=== PATIENT | female | born 1995 | race Caucasian/White ===

== ENCOUNTER 2017-01-08 09:01 | Emergency (ER) | payer BC ==
[2017-01-08 09:05] VITALS: TEMP 98.2
--- NOTE | 2017-01-08 09:13 | EDPHY ---
H & P Smoking Status: Never smoked Time Seen by Provider: 01/08/17 09:06 HPI/ROS: CHIEF COMPLAINT: Right foot injury HISTORY OF PRESENT ILLNESS: 21-year-old female presents to the emergency department complaining of isolated pain to her right 4th and 5th toes. Patient states 4 days ago she was barefoot and kicked the door frame while she was at home. She states that she has had ongoing pain and now has some free time to come in and have it evaluated. She is able to ambulate although this causes more pain. Denies any other trauma or injury. She believes her tetanus shot is current. ROS: Denies numbness or tingling in her toes, pain in the ankle or calf. Denies symptoms in the left lower extremity (Danae Coughlin) Past Medical/Surgical History: Negative (Danae Coughlin) Social History: [employer] student (Danae Coughlin) Physical Exam: On examination there is a small healing abrasion to the dorsal aspect of her right 4th toe overlying D IP joint. She has tenderness with palpation to the right 4th metatarsal as well as slightly to the right 5th metatarsal. No rotational deformities are noted. Normal sensation to light touch with normal 2 point discrimination. The other toes are non tender. Full range of motion of her ankle. No lymphangitis. Antalgic gait. (Danae Coughlin) Constitutional: Initial Vital Signs Temperature (C) 36.8 C 01/08/17 09:02 Heart Rate 71 01/08/17 09:02 Respiratory Rate 16 01/08/17 09:02 Blood Pressure 115/59 L 01/08/17 09:02 O2 Sat (%) 98 01/08/17 09:02 O2 Delivery Mode Room Air Allergies/Adverse Reactions: No Known Allergies Allergy (Unverified 01/08/17 09:05) Home Medications: Medication Instructions Recorded NK [No Known Home Meds] 01/08/17 MDM/Departure - [facility] Imaging: I viewed and interpreted images myself - [facility] Imaging Results: Imaging Impressions Toe X-Ray 01/08/17 09:09 Impression: Negative for fracture. 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 (Rosin,Danae M) ED Course/Re-evaluation: 21-year-old female presents to the emergency department with right foot injury. X-rays reveal no fractures. Her toes were tonya-taped and she was placed in a postop shoe to help minimize flexion. She was given orthopedic referral and will follow up in 1 week if she continues to have ongoing pain. She was given wound care precautions as well for her abrasion. (Danae Coughlin) I did not see this patient while she was in the emergency department. However her care was discussed with the PA while the patient was in the department. I agree with treatment plan and management (Leighton Webster) - Depart Disposition: Home, Routine, Self-Care Clinical Impression: Contusion of right foot including toes Qualifiers: Encounter type: initial encounter Qualified Code(s): S90.31XA - Contusion of right foot, initial encounter Condition: Good Instructions: Foot Contusion (ED) Additional Instructions: Tonya tape for comfort and support. Post op shoe for comfort and support and to minimize flexion of the toes. Ibuprofen 600mg every 8 hours for pain as directed. Weight bear as tolerated. Referrals: Lance Nicolas MD [Medical Doctor] - 5-7 days, if not improved (Orthopedic surgeon on-call)
[2017-01-08 09:42] VITALS: BP 103/68; PULSE 65; RESP 14; O2SAT 97
== END 2017-01-08 09:41 | disposition home or self-care (01) ==
DX: S90.31XA Contusion of right foot, initial encounter (principal); W22.8XXA Striking against or struck by other objects, initial encounter; Y92.009 Unspecified place in unspecified non-institutional (private) residence as the place of occurrence of the external cause
CPT/HCPCS: L3260

== ENCOUNTER 2017-07-03 11:24 | Emergency (ER) | payer BC ==
[2017-07-03 11:35] VITALS: TEMP 99.3
[2017-07-03] MEDS ORDERED: DEXAMETHASONE 10 MG/ML VIAL IVP ONE (12:21)
[2017-07-03] MEDS ORDERED: FAMOTIDINE 20 MG/2 ML SDV IVP ONE (12:21)
--- NOTE | 2017-07-03 12:25 | EDPHY ---
General Time Seen by Provider: 07/03/17 12:20 Narrative: CHIEF COMPLAINT: Possible allergic reaction, rash HISTORY OF PRESENT ILLNESS: Patient complains of "I think I am having an allergic reaction." She reports feeling some scalp irritation itching on night. She took a cold shower and use some condition and felt improved. Over the night into Monday morning she notes some "rash all over me." She describes urticarial type rash that was diffuse. She has had no difficulty swallowing or breathing. No drooling. No swelling of the lips, face or tongue. She has had some wheezing. She feels that may be related to a new fabric softener or possible her apartment room that she may be allergic to something in. She has no chest pain or shortness of breath. No fever. No neck pain or stiffness. No trauma injury. She went to urgent care yesterday which she was treated with Benadryl, Zyrtec and methylprednisolone and sent home on a methylprednisolone taper. She has had no improvement of her symptoms of any kind. No other associated complaints or modifying factors. REVIEW OF SYSTEMS: Ten systems reviewed and are negative unless otherwise noted in the HPI PCP: None SPECIALISTS: None PAST MEDICAL HISTORY: None PAST SURGICAL HISTORY: No recent surgeries SOCIAL HISTORY: Nonsmoker. Occasional alcohol use. No drug use. Originally from [facility]. She has a [employer] student for the last 2 years FAMILY HISTORY: Noncontributory EXAMINATION General Appearance: Alert, no distress Head: normocephalic, atraumatic Eyes: Pupils equal and round, no conjunctival pallor or injection ENT, Mouth: Mucous membranes moist. Uvula is midline. The airway is widely patent. There is no trismus. No swelling of the lips or tongue. No angioedema. No stridor Neck: Normal inspection, supple, non-tender Respiratory: Lungs are clear to auscultation. No wheezing, rhonchi or crackles Cardiovascular: Regular rate and rhythm. No murmur Gastrointestinal: Abdomen is soft and nontender Back: non-tender, no bony abnormalities Neurological: A&O, nonfocal, normal gait Skin: Warm and dry, no petechiae or purpura. There is diffuse urticarial rash from head to toe. Extremities: Nontender, no pedal edema Psychiatric: Mood and affect normal DIFFERENTIAL DIAGNOSES: Including but not limited to urticaria, anaphylaxis, allergic reaction MDM: 12:20 p.m. Diffuse urticaria with suspected allergic reaction. The patient has been on methylprednisolone by mouth since Monday afternoon with no improvement. Her airway is widely patent no drooling or swelling of the mouth or lips. She is in no acute distress and does not require epinephrine at this time. I have ordered IV medications including Decadron, Benadryl and Pepcid and I will re- evaluate. She may benefit from epinephrine due to the diffuse urticaria if no improvement with these medications 1:40 p.m. Patient re-evaluated. She has minimal response to the medication. She does repeat last pruritus, but the rash has minimally improved. I did offer 1 dose of epinephrine for this as I do feel it is reasonable. She would like to proceed with this. This will be done and she will be placed on a vehicle monitor technician. I will monitor for 1 hr. 2:20 p.m. Patient has received her epinephrine 10 min ago. 2:45 p.m. Patient re-evaluated. She says the itching has significant decrease in the rash has improved. She had no chest pain or palpitations during this. She is feeling better and would like to go home. I informed her that I would like to monitor for a little bit longer and then proceed with discharge home. To be discharged home with instructions to switch from Benadryl to hydroxyzine. I will change her from her methylprednisolone taper 2 prednisone 3 day burst. I instructed her to take Pepcid [id number]. We discussed ED precautions and follow up with primary care physician. She is comfortable this plan. 3:00 p.m. Patient continues to feel well and ready for discharge home. She is discharged in stable condition SUPERVISION: Patient was independently examined, but I discussed the case with my secondary supervising physician Dr. Garcia - History Smoking Status: Never smoked - Objective Vital Signs: Initial Vital Signs Temperature (C) 99.3 F 07/03/17 11:34 Heart Rate 81 07/03/17 11:34 Respiratory Rate 18 07/03/17 11:34 Blood Pressure 126/97 H 07/03/17 11:34 O2 Sat (%) 97 07/03/17 11:34 O2 Delivery Mode Room Air Allergies/Adverse Reactions: No Known Allergies Allergy (Unverified 01/08/17 09:05) Home Medications: Medication Instructions Recorded hydrOXYzine HCL [Hydroxyzine HCl] 1 - 2 tab PO Q6-8PRN PRN #15 tablet 07/03/17 predniSONE [Deltasone] 60 mg PO DAILY #9 tablet 07/03/17 Medications Given: Discontinued Medications Dexamethasone (Decadron Injection) 10 mg IVP EDNOW ONE Stop: 07/03/17 12:22 Last Admin: 07/03/17 12:41 Dose: 10 mg Diphenhydramine HCl (Benadryl Injection) 25 mg IVP EDNOW ONE Stop: 07/03/17 12:22 Last Admin: 07/03/17 12:40 Dose: 25 mg Epinephrine HCl (Epinephrine) 0.3 mg IM EDNOW ONE Stop: 07/03/17 14:06 Last Admin: 07/03/17 14:13 Dose: 0.3 mg Famotidine (Pepcid) 20 mg IVP EDNOW ONE Stop: 07/03/17 12:22 Last Admin: 07/03/17 12:41 Dose: 20 mg Departure - Departure Disposition: Home, Routine, Self-Care Clinical Impression: Urticaria Allergic reaction Qualifiers: Encounter type: initial encounter Qualified Code(s): T78.40XA - Allergy, unspecified, initial encounter Condition: Good Instructions: Urticaria (ED) Additional Instructions: 1. Hydroxyzine as prescribed as needed. Do not take with Benadryl 2. Pepcid 20 mg twice daily for the next 3-5 days 3. Prednisone once daily starting on Monday for the next 3 days 4. ED precautions as discussed Referrals: [facility] [Clinic] - As per Instructions Vy Edwards MD [Doctor of Osteopathy] - As per Instructions Stand Alone Forms: School Excuse Prescriptions: hydrOXYzine HCL [Hydroxyzine HCl] 1 - 2 tab PO Q6-8PRN PRN #15 tablet PRN Reason: Anxiety predniSONE [Deltasone] 60 mg PO DAILY #9 tablet
[2017-07-03 13:18] VITALS: RESP 16
[2017-07-03 15:13] VITALS: BP 122/69; PULSE 68; O2SAT 96
== END 2017-07-03 15:13 | disposition home or self-care (01) ==
DX: L50.0 Allergic urticaria (principal)
CPT/HCPCS: 96374; J0171; J1100; J1200